=== PATIENT | male | born 2005 | race Caucasian/White ===

== ENCOUNTER 2023-03-24 06:55 | Emergency (ER) | payer OTHER, SELFPAY ==
[2023-03-24] VITALS (10 sets, daily range): BP systolic 139–151; BP diastolic 55–81; PULSE 92–115; RESP 10–16; TEMP 36.9; O2SAT 97
--- NOTE | 2023-03-24 07:15 | DI.RAD_ITS ---
Exam(s) XR PORTABLE CHEST AP CLINICAL HISTORY: TECHNIQUE: 2D digital imaging was performed of the chest. One image was obtained. An AP view was ob tained. COMPARISON: No exams were available for comparison FINDINGS: MEDIASTINUM: Normal. HEART: Normal. PULMONARY VASCULATURE: Normal. LUNGS: Clear. PLEURAL SPACE: No pleural effusion or pneumothorax. BONE:Within normal limits for the patient's age. OTHER FINDINGS:Normal. IMPRESSION: No acute pulmonary findings. DATA REPOSITORY: RADIATION DOSE DELIVERED:
--- NOTE | 2023-03-24 09:15 | RT.EKG_ITS ---
APPROVED REPORT Exam: Resting ECG Reason for Exam: altered mental status Patient Location: E HR:113 bpm ECG Measurements Heart Rate 113 AXIS NJ 159 P 63 QRSd 90 QRS 88 QT 330 T 17 QTc 452 Conclusion sinus tachy [address] changes
--- NOTE | 2023-03-24 09:41 | ED.GENADUL_ITS ---
Discharge Plan Disposition Patient Disposition: Home Discharge Details Clinical Impression: Overdose opiate Primary Care Provider: Francisca De Jesus ED Provider: Pippa Al Home Meds and New Rx's Prescriptions: New naloxone [Narcan] 4 mg/actuation spray,non-aerosol 4 mg intranasal Q2M PRNQty: 2 2RF Rx Instructions: spray 1 dose into ONE nostril; alternate nostrils w each dose until help arrives Discharge Instructions Instructions: Opioid Use Disorder (ED) Additional Instructions: please refrain from drug use if you use, please have narcan nearby follow up with counseling options Medical Decision Making Patient initially arrived during EMR downtime Emergent evaluation of altered mental status. At this time the patient is without complaints. He has a lot of scratches noted on his examination but he says this is from scrubbing his skin in the shower. He was noted to be tach ycardic and hypertensive. Concern for toxidrome. 0800 mom now arrived. Mom reports that the patient has had erratic behavior over the last week including agitation and this increased scratching behavior. She states that it is the anniversary of his brother's . She states that he had used fentanyl back in July and she is concerned he may be using again. Tonight she says that he was up all night and that she heard some abnormal breathing so she went to his room to check on him. He was unresponsive. She reports decreased respiratory effort and pallor. She states that he felt stiff. He had a very abnormal breathing sound. She threw cold water on him and he woke up but was not his normal self for several minutes. He was able to walk to the ambulance. I reviewed his lab work during downtime. His chest x-ray was unremarkable. His white blood cell count was slightly elevated at 18. His EKG demonstrated sinus tachycardia. His alcohol level was negative. His AST and ALT were slightly elevated. His tox screen was positive for THC was negative for everything else. I confirmed with laboratory that fentanyl would not show up on our screening test. I discussed lab findings and observe the patient in the emergency department. Eventually the patient admitted to fentanyl use at home. A middle school volleyball coach was contacted and came out to the emergency department. Patient would not benefit from inpatient rehab treatment at this time, but resources were provided. I provided him with a prescription for Narcan and advised to keep it almost present if he continues to use opiates. Medical Records Medical records reviewed: Yes I reviewed the patient's medical records. Lab Data Lab results reviewed: Yes I reviewed the patient's lab results. HPI General Date/Time Provider Initiated Documentation: 03/24/23 09:41 . Limitations to Documentation: no limitations . Information obtained by: patient, family and EMS . HPI Narrative: 17-year-old gentleman without significant past medical history presents for evaluation of altered mental status. Per EMS, the patient was difficult to wake up this morning. Mom reported to them that she had to splashed with water to wake him up. He reports that he smoked dab last night but denies any other drug use. EMS reports that he vomited once so they gave him Zofran. Patient denies any complaints at this time Related Data Home Medications Medication Instructions Recorded Confirmed naloxone 4 mg/actuation nasal 4 mg intranasal Q2M PRN #2 ea 03/24/23 spray (Narcan) Previous Rx's Medication Instructions Recorded naloxone 4 mg/actuation nasal 4 mg intranasal Q2M PRN #2 ea 03/24/23 spray (Narcan) General Stated Complaint: AMS/LOC YEVGENIY: 3 PFSH All Active Problems Overdose opiate (Acute) Social History Smoking risk assessment performed?: No Exam Narrative Exam Narrative: Review of Systems: All systems reviewed & are unremarkable except as noted in HPI and below: CONSTITUTIONAL: Alert and oriented Well-developed, anxious HEENT: NCAT EYES: PERRL, no conjunctival injection NOSE nares patent MOUTH Moist MM, no tongue trauma NECK: Symmetric, trachea midline, No thyromegaly THROAT oropharynx clear CVS: Tachycardic, No murmurs or gallops. Peripheral pulses 2+ and equal in all extremities Brisk capillary refill in all extremities. No peripheral edema RESP: Unlabored respiratory effort, Clear to auscultation bilaterally No wheezes rales or rhonchi GI: Soft, Nontender, Nondistended, No organomegaly MSK: Extremities with full range of motion, no deformity or TTP SKIN: Warm, Dry. Red coleen on the forehead, multiple scratches over trunk neck and arms NEURO: No focal neurologic deficits. + Resting tremor Course Vital Signs Vital signs: Vital Signs Temperature 36.9 C 03/24/23 09:13 Pulse 112 H 03/24/23 09:13 Respiratory Rate 15 03/24/23 09:13 Blood Pressure 151/78 H 03/24/23 09:13 Pulse Oximetry 97 03/24/23 09:13 Temperature 36.9 C 03/24/23 09:13 Temperature Source Temporal Artery Scan 03/24/23 09:13 Pulse 112 H 03/24/23 09:13 Respiratory Rate 15 03/24/23 09:13 Respiratory Effort Normal 03/24/23 09:10 Respiratory Depth Normal 03/24/23 09:10 Blood Pressure 151/78 H 03/24/23 09:13 Blood Pressure Position Sitting 03/24/23 09:13 Pulse Oximetry 97 03/24/23 09:13 Oxygen Delivery Method Room Air 03/24/23 09:13
[2023-03-24 11:27] LABS: ALT 181 U/L (16-63); AST 120 U/L (15-37); Albumin 4.6 g/dL (3.4-5.0); Alkaline Phosphatase 99 U/L (46-116); Anion Gap 14.6 mmol/L (3-11); BUN 19 mg/dL (7-18); Bilirubin, Total 0.8 mg/dL (0.2-1.0); CO2 24.4 mmol/L (21.0-32.0); CREATININE 1.3 mg/dL (0.70-1.30); Calcium 8.2 mg/dL (8.5-10.1); Chloride 94 mmol/L (98-107); Estimated GFR 81.16 (mL/min/1.73m2); Glucose 119 mg/dL (74-106); Potassium 3.9 mmol/L (3.5-5.1); Sodium 133 mmol/L (136-145); Total Protein 7.8 g/dL (6.4-8.2)
[2023-03-24 11:28] LABS: ETHANOL BLOOD < 3.0 mg/dL (<10)
[2023-03-24 11:29] LABS: *AMPHETAMINES SCREEN URINE Negative (Negative); *BARBITURATES SCREEN URINE Negative (Negative); *BENZODIAZEPINES SCREEN URINE Negative (Negative); Cannabinoids THC Positive (Negative); Cocaine Screen,Urine Negative (Negative); METHADONE URINE SCREEN Negative (Negative); OPIATES URINE SCREEN Negative (Negative); Tricyclic Antidepressants Negative (Negative)
[2023-03-24 11:30] LABS: HCT 39.9 % (40.0-50.0); HGB 13.6 g/dL (13.5-17.5); MCH 30.9 pg (27.0-33.0); MCHC 34.1 % (32.0-36.0); MCV 91 fL (80-95); Platelet Count 245 10^3/uL (130-400); RDW 12.7 % (11.8-14.1); WBC 18.72 10^3/uL (4.4-10.8)
[2023-03-24 11:31] LABS: Absolute Basophil Count 0.04 10^3/uL (0.0-0.2); Absolute Lymphocyte Count 0.45 10^3/uL (1.2-3.4); Absolute Monocyte Count 2.08 10^3/uL (0.1-0.8); Basophils % 0.2; Immature Grans % 0.6; Lymphocytes % 2.4; Monocytes % 11.1; Neutrophils % 85.7
[2023-03-24 11:35] LABS: Abs Immature Grans 0.12 10^3/uL (0.0-0.06); Absolute Neutrophil Count 16.03 10^3/uL (1.2-6.7)
[2023-03-24 11:36] LABS: Diff Comment Diff Reviewed; RBC Morphology Normal
== END 2023-03-24 10:34 | disposition home or self-care (01) ==
PROVIDERS: Emergency Provider Emergency Medicine; PCP Nurse Practitioner
DX: R41.82 Altered mental status, unspecified (principal); T40.601A Poisoning by unspecified narcotics, accidental (unintentional), initial encounter; R00.0 Tachycardia, unspecified
CPT/HCPCS: 80053; 80307; 93005; 99285; 71045; 80320; 85025; 93010; 99284